=== PATIENT | male | born 1990 | race Caucasian/White ===

== ENCOUNTER 2018-11-18 17:14 | Emergency (ER) | payer SELFPAY ==
[~2018-11-18] VITALS: Ht 182.9 cm; Wt 105.0 kg
[2018-11-18] MEDS ORDERED: IBUPROFEN 600MG TABLET PO ONE (18:30)
[2018-11-18 18:36] VITALS: BP 136/84
== END 2018-11-18 18:37 | disposition home or self-care (01) ==
LOC: ER 17:14
DX: M79.601 Pain in right arm (principal); Z88.0 Allergy status to penicillin
CPT/HCPCS: 99282